=== PATIENT | male | born 1995 | race Caucasian/White ===

== ENCOUNTER 2022-02-18 12:51 | Emergency (ER) | payer BC, SELFPAY ==
[2022-02-18 12:52] VITALS: BP 140/79; PULSE 99; RESP 18; TEMP 36.8; O2SAT 96; BMI 25.9
--- NOTE | 2022-02-18 13:16 | CT_ITS ---
FINAL REPORT CLINICAL HISTORY: abd pain FINDINGS: Technique: The patient was injected with intravenous contrast. Axial images through the abdomen and pelvis were performed. This study was performed with techniques to keep radiation doses as low as reasonably achievable (ALARA). Individualized dose reduction techniques using automated exposure control or adjustment of mA and/or kV according to the patient's size were employed. Abdomen: The lung bases are clear. The liver is normal in size and attenuation. The gallbladder is present. The spleen is unremarkable. The adrenals are normal. The pancreas is unremarkable. The kidneys enhance appropriately. The aorta is normal in caliber. There is a small amount of free fluid which is likely reactive. Pelvis: The appendix is normal. There are multiple fluid filled small bowel loops with mild wall thickening which is worrisome for enteritis. The urinary bladder is unremarkable. IMPRESSION: Findings worrisome for enteritis. Small amount of free fluid which is likely reactive. Reviewed, Interpreted and Dictated by Malik Murcia III, MD Transcribed by Rachel Browne Authenticated by Malik Murcia III, MD on 02/18/2022 02:38:13 PM [facility]
[2022-02-18 13:26] LABS: Basophils # 0.1 K/mm3 (0-0.2); Basophils % 0.5 % (0.1-2.0); Eosinophils # 0.1 K/mm3 (0.0-0.4); Eosinophils % 0.7 % (0.1-12.0); Hematocrit 49.3 % (42.0-52.0); Lymphocytes # 0.7 K/mm3 (0.7-4.5); Lymphocytes % 5.7 % (10-50); Mean Corpuscular HGB Conc 34.6 g/dL (31.8-35.4); Mean Corpuscular Hemoglobin 29.8 pg (27.0-31.2); Mean Corpuscular Volume 86.2 fl (80-94); Mean Platelet Volume 8.2 fl (7.4-10.4); Monocytes # 0.5 K/mm3 (0.1-1.0); Monocytes % 4.3 % (1.7-9.3); Neutrophils % 88.7 % (37.0-80.0); Platelet Count 305 K/mm3 (142-424); Red Blood Count 5.71 M/mm3 (4.60-6.20); Red Cell Distribution Width 13.8 % (11.5-17.5); White Blood Count 12.4 K/mm3 (4.8-10.8)
[2022-02-18 13:27] LABS: MANUAL DIFFERENTIAL MANUAL DIFFERENTIAL (MANUAL DIFF)
[2022-02-18 13:29] LABS: Chloride 104 mmol/L (98-107); Potassium 4.3 mmoL/L (3.5-5.1); Sodium 139 mmol/L (136-145)
[2022-02-18 13:31] LABS: Amylase 72 U/L (30-110); Blood Urea Nitrogen 15 mg/dl (9-20); Creatinine Clearance Estimated 177 mL/min (50-200); Estimated Glomerular Filt Rate 134 ml/min (>60); GFR (African American) 162 ML/MIN (>60)
[2022-02-18 13:32] LABS: Alanine Aminotransferase 49 U/L (12-78); Albumin Level 4.5 g/dl (3.5-5.0); Albumin/Globulin Ratio 1.6 (1.1-1.8); Alkaline Phosphatase 100 U/L (38-126); Anion Gap 10.3 mEq/L (5-15); Aspartate Amino Transferase 37 U/L (17-59); Bilirubin,Total 0.7 mg/dl (0.2-1.3); Calcium 8.4 mg/dl (8.4-10.2); Carbon Dioxide 29 mmol/L (22.0-30.0); Globulin 2.8 g/dL (1.3-3.2); Glucose 100 mg/dl (74-100); Lipase 40 U/L (23-300); Total Protein,Serum 7.3 g/dl (6.3-8.2)
[2022-02-18 13:45] VITALS: BP 127/70; PULSE 70; RESP 16; O2SAT 98
--- NOTE | 2022-02-18 13:56 | PC.NURSE ---
pt in CT
--- NOTE | 2022-02-18 14:06 | HMH.EDGENADL ---
ED Disposition Clinical Impression: Enteritis Disposition: Home, Self-Care Condition on Discharge: Good Instructions: DI for Acute Abdominal Pain, DI for Enteritis Additional Instructions: You are being provided with a list of physicians available for follow-up of your condition. Please call a physician on this list to arrange a follow-up appointment as soon as possible. Bentyl as needed for abdominal cramps. Zofran as needed for nausea. Additional instructions for ABDOMINAL PAIN: See your physician as soon as possible for further evaluation. Return immediately if worsening abdominal pain, vomiting, shortness of breath, fever, bloody diarrhea, vomiting of blood or abdominal distention. Prescriptions: Dicyclomine HCl [Bentyl 10mg capsule] 10 mg PO TIDP PRN #10 cap PRN Reason: Cramping [id number] Ondansetron [Zofran 4mg ODT] 4 mg PO TIDP PRN #10 tab PRN Reason: Nausea And Vomiting Transmission Status: [id number] Referrals: Provider,Referral, [Primary Care Provider] - - Critical Care Critical Care Time: No Attestation: On 02/18/22, the high probability of a clinically significant, sudden or life threatening deterioration of the following system(s) required my full and direct attention, intervention and personal management. The time I documented below is in addition to time spent performing reported procedures but includes the following listed in this critical care notation. Medical Decision Making - Jose A Inquiry Pt receiving controlled substance: No Vital Signs: 02/18/22 12:52 02/18/22 13:45 02/18/22 14:25 Temperature 98.2 F Temperature Source Oral Pulse Rate 70 70 Pulse Rate [Right Radial] 99 H Respiratory Rate 18 16 16 Blood Pressure 127/70 132/74 Blood Pressure [Right Arm] 140/79 Blood Pressure Mean [Right Arm] 99 Blood Pressure Source Automatic Cuff Automatic Cuff Blood Pressure Position Sitting Sitting 02 Sat by Pulse Oximetry 96 98 98 Oxygen Delivery Method Room Air Room Air 02/18/22 15:29 02/18/22 16:31 Temperature 98.3 F Temperature Source Oral Pulse Rate 72 70 Pulse Rate [Right Radial] Respiratory Rate 16 16 Blood Pressure 122/70 122/70 Blood Pressure [Right Arm] Blood Pressure Mean [Right Arm] Blood Pressure Source Automatic Cuff Automatic Cuff Blood Pressure Position Sitting Sitting 02 Sat by Pulse Oximetry 100 Oxygen Delivery Method Room Air Room Air - Lab Data Lab Results 02/18/22 13:04: WBC 12.4 H, RBC 5.71, Hgb 17.0, Hct 49.3, MCV 86.2, MCH 29.8, MCHC 34.6, RDW 13.8, Plt Count 305, MPV 8.2, Neut % (Auto) 88.7 H, Lymph % (Auto) 5.7 L, Fisher % (Auto) 4.3, Eos % (Auto) 0.7, Baso % (Auto) 0.5, Neut # (Auto) 11.0 H, Lymph # (Auto) 0.7, Fisher # (Auto) 0.5, Eos # (Auto) 0.1, Baso # (Auto) 0.1, Total Counted 100, Neutrophils % (Manual) 89 H, Lymphocytes % (Manual) 8 L, Monocytes % (Manual) 2, Eosinophils % (Manual) 1, Platelet Estimate Normal, RBC Morphology Normal 02/18/22 13:04: Sodium 139, Potassium 4.3, Chloride 104, Carbon Dioxide 29, Anion Gap 10.3, BUN 15, Creatinine 0.70, Estimated Creat Clear 177, Estimated GFR 134, Est GFR ( Amer) 162, Glucose 100, Calcium 8.4, Total Bilirubin 0.7, AST 37, ALT 49, Alkaline Phosphatase 100, Total Protein 7.3, Albumin 4.5, Globulin 2.8, Albumin/Globulin Ratio 1.6, Amylase 72, Lipase 40 02/18/22 13:16: Urine Color Yellow, Urine Appearance Clear, Urine pH 7.0, Ur Specific [place] 1.010, Urine Protein Negative, Urine Glucose (UA) Negative, Urine Ketones Negative, Urine Blood Negative, Urine Nitrate Negative, Urine Bilirubin Negative, Urine Urobilinogen 0.2, Ur Leukocyte Esterase Negative, Urine RBC None, Urine WBC None, Ur Squamous Epith Cells None, Urine Bacteria None Result diagrams: 02/18/22 13:04 02/18/22 13:04 Orders (Tests/Meds): ED MEDICATIONS Discontinued Medications Generic Name Dose Route Start Last Admin Trade Name
[2022-02-18 14:21] LABS: Eosinophils % 1 % (0-3); Lymphocytes % 8 % (10-50); Monocytes % 2 % (2-9); Neutrophils % 89 % (42-76); Platelet Estimate Normal; RBC Morphology Normal; Total Cells Counted 100
[2022-02-18 14:25] VITALS: BP 132/74; PULSE 70; RESP 16; O2SAT 98
[2022-02-18 15:29] VITALS: BP 122/70; PULSE 72; RESP 16; O2SAT 100
--- NOTE | 2022-02-18 15:30 | PC.NURSE ---
Spoke with eren from [facility] she stated that CT scans had been read but weren't crossing over. She will be printing them out and bringing them to us.
--- NOTE | 2022-02-18 15:34 | PC.NURSE ---
Urine sent to lab at this time.
[2022-02-18 15:35] LABS: Microscopic, Urine URINE MICROSCOPIC (MICROSCOPIC)
[2022-02-18 16:22] LABS: Appearance,Urine CLEAR (Clear); Bilirubin,Urine Negative (Negative); Blood, Urine Negative (Negative); Color,Urine YELLOW (Yellow); Glucose,Urine (UA) Negative (Negative); Ketones,Urine Negative (Negative); Leukocyte Esterase,Urine Negative (Negative); Nitrate,Urine Negative (Negative); Protein,Urine Negative (Negative); Urobilinogen,Urine 0.2 EU/dl (0.2)
[2022-02-18 16:31] VITALS: BP 122/70; PULSE 70; RESP 16; TEMP 36.8; O2SAT 98
== END 2022-02-18 16:35 | disposition home or self-care (01) ==
PROVIDERS: Emergency Provider Emergency Medicine
DX: K52.9 Noninfective gastroenteritis and colitis, unspecified (principal); R10.13 Epigastric pain
CPT/HCPCS: 74177; 80053; 81001; 82150; 83690; 85007; 85025; 96365; 96375; 99284; Q9967

== ENCOUNTER 2024-07-26 22:07 | Emergency (ER) | payer BC, SELFPAY ==
--- NOTE | 2024-07-26 23:17 | ED_ITS ---
Discharge Plan Disposition Patient Disposition: Home, Self-Care Prescriptions Prescriptions: New ondansetron HCl 4 mg tablet 4 mg PO Q8H PRN (Reason: nausea and vomiting) 5 Days Qty: 30 0RF No Action ondansetron 4 MG tablet,disintegrating 4 mg PO TIDP PRN (Reason: Nausea And Vomiting) Qty: 10 0RF dicyclomine 10 MG capsule 10 mg PO TIDP PRN (Reason: Cramping) Qty: 10 0RF Referrals Follow up/Referrals: Provider,Referral, MD [Primary Care Provider] - See instructions Activity Restrictions/Add. Instructions Additional Instructions/Restrictions: Please take Tylenol and ibuprofen as needed for pain and fever. Please take Zofran as needed for nausea and vomiting. Please follow-up with your primary care provider. Please return to the emergency department if you develop any new or worsening symptoms or become concerned for your health. Clinical Impressions Clinical Impression: Flu-like symptoms, Body aches Stand Alone Forms Stand Alone Forms: Work/School Release Print Language Print Language: Swedish Discharge ED Provider: Evan Luu General Adult HPI General Chief complaint: Fever Stated complaint: fever,SOA,body aches Time Seen by Provider: 07/26/24 23:17 History of Present Illness HPI narrative: 29-year-old male without significant past medical history presents for flulike symptoms. He reports that for the last day or 2 he has had mild fever, body aches, occasional cough. He denies any chest pain or shortness of breath. Reports nausea but no vomiting. Denies diarrhea. Reports that other people around him have been sick recently as well Related Data Previous Rx's ?Medication ?Instructions ?Recorded dicyclomine 10 mg capsule 10 mg PO TIDP PRN Cramping #10 caps 02/18/22 ondansetron 4 mg disintegrating 4 mg PO TIDP PRN Nausea And 02/18/22 tablet Vomiting #10 tabs ondansetron HCl 4 mg tablet 4 mg PO Q8H PRN nausea and 07/26/24 vomiting 5 days #30 tabs Allergies Allergy/AdvReac Type Severity Reaction Status Date / Time No Known Allergies Allergy Verified 02/18/22 13:16 [facility] Disclaimer: The information contained in this section may have been updated after the patient was seen, as this information can be updated by other users. Social History Smoking Status: Former smoker alcohol intake: never current occupational status: employed Travel in the last 8 weeks: None ROS Obtained: Yes All systems reviewed & no additional complaints except as documented Physical Exam General General appearance: alert and in no apparent distress Head Head exam: atraumatic and normocephalic Eye Eye exam: Present normal appearance, PERRL and EOMI ENT ENT exam: Present normal oropharynx and normal external ear exam Neck Neck exam: Present normal inspection and full ROM Chest Chest inspection: Present normal inspection and symmetric chest wall rise; Absent tenderness Respiratory Respiratory exam: Present normal lung sounds bilaterally; Absent respiratory distress Cardiovascular Cardiovascular exam: Present regular rate and normal rhythm Abdominal Exam Abdominal exam: Present soft; Absent distention, tenderness or guarding Extremities Exam Extremities exam: Present normal inspection; Absent edema or joint swelling Back Exam Back exam: Present normal inspection; Absent tenderness Neurological Exam Neurological exam: Present alert and oriented X3; Absent motor sensory deficit Psychiatric Psychiatric exam: Present normal affect and normal mood Skin Skin exam: Present warm, dry and normal color Lymphatic Lymphatic Findings: no adenopathy Medical Decision Making Medical Records Medical records reviewed: Yes I reviewed the patient's medical records. Jose A Inquiry Pt receiving controlled substance: No Jose A was queried for this patient: No Vital Signs: 07/26/24 23:21 07/26/24 23:45 07/26/24 23:46 Temperature 100.3 F H 100.3 F H Temperature Source Oral Oral Oral Pulse Rate 70 Pulse Rate [Right Brachial] 90 Respiratory Rate 16 16 Blood Pressure 109/70 L Blood Pressure [Right Arm] 109/70 L Blood Pressure Mean [Right Arm] 83 Blood Pressure Source Automatic Cuff Blood Pressure Source [Right Arm] Automatic Cuff Blood Pressure Position Sitting Blood Pressure Position [Right Arm] Sitting 02 Sat by Pulse Oximetry 97 Oxygen Delivery Method Room Air Room Air Lab Data Lab results reviewed: Yes I reviewed the patient's lab results. Orders (Tests/Meds): ED MEDICATIONS Discontinued Medications Generic Name Dose Route Start Last Admin Trade Name Freq PRN Reason Stop Dose Admin Ondansetron HCl 4 mg 07/26/24 23:27 07/26/24 23:29 Ondansetron 4mg Odt SL 07/26/24 23:28 4 mg ONCE ONE Administration Medical Decision Narrative: 29-year-old male without significant past medical history presents for flulike symptoms for the last 1 to 2 days. History was obtained via interactive discussion with patient family chart review. On arrival, patient is borderline febrile to 100.3, hemodynamically stable,, moving all extremities spontaneously. Full physical exam performed and significant for clear oropharynx, clear lungs bilaterally, overall well-appearing Differential includes but is not limited to flu, COVID, URI, pneumonia, strep throat.. Patient was given Zofran for symptomatic management and correction of underlying abnormalities. I considered obtaining chest x-ray, strep swab, viral swabs, but they were deemed unnecessary given history and physical exam Given patient history, exam and workup, patient's presentation most likely represents URI. Patient was given instructions regarding symptomatic care and discharged with prescription for Zofran for nausea. Return precautions given.. Procedures Risk/Benefits of Procedure(s) Were Explained: Yes Critical Care Critical Care Time Critical Care Time: No
[2024-07-26 23:21] VITALS: BP 109/70; PULSE 90; RESP 16; TEMP 37.9; O2SAT 97; BMI 28.3
[2024-07-26] MEDS: ONDANSETRON 4MG ODT 4 MG SL (23:29)
[2024-07-26 23:45] VITALS: BP 109/70; PULSE 70; RESP 16; TEMP 37.9
== END 2024-07-26 23:40 | disposition home or self-care (01) ==
PROVIDERS: Emergency Provider Emergency Medicine
DX: R50.9 Fever, unspecified (principal); R06.02 Shortness of breath; R11.0 Nausea; R05.9 Cough, unspecified; Z87.891 Personal history of nicotine dependence
CPT/HCPCS: 99283; Q0162

== ENCOUNTER 2024-10-24 04:27 | Emergency (ER) | payer BC, SELFPAY ==
[2024-10-24 04:29] VITALS: BP 109/77; PULSE 88; RESP 18; TEMP 36.9; O2SAT 100; BMI 26.6
[2024-10-24 04:42] VITALS: PULSE 85; O2SAT 96
[2024-10-24 04:45] VITALS: PULSE 84; O2SAT 96
[2024-10-24] MEDS: ACETAMINOPHEN 500MG TAB 1000 MG PO (04:49)
[2024-10-24] MEDS: IBUPROFEN 800 MG TABLET PO (04:49)
[2024-10-24 04:50] LABS: Coronavirus 19, PCR Not Detected (NotDetected); Influenza A, PCR Not Detected (NotDetected); Influenza B, PCR Not Detected (NotDetected)
[2024-10-24 05:24] VITALS: BP 110/74; PULSE 84; RESP 16; TEMP 36.8; O2SAT 100
--- NOTE | 2024-10-24 05:27 | ED_ITS ---
Discharge Plan Disposition Patient Disposition: Home, Self-Care Condition: Good Prescriptions Prescriptions: No Action ondansetron HCl 4 mg tablet 4 mg PO Q8H PRN (Reason: nausea and vomiting) 5 Days Qty: 30 0RF ondansetron 4 MG tablet,disintegrating 4 mg PO TIDP PRN (Reason: Nausea And Vomiting) Qty: 10 0RF dicyclomine 10 MG capsule 10 mg PO TIDP PRN (Reason: Cramping) Qty: 10 0RF Referrals Follow up/Referrals: Provider,Referral, MD [Primary Care Provider] - See instructions Activity Restrictions/Add. Instructions Additional Instructions/Restrictions: You were evaluated in the ER and are appropriate for discharge at this time. Take Tylenol, ibuprofen if needed for headache, body aches, fever. Do not exceed the recommended dose on the bottle. Drink water and eat a small snack each time you take these medications to avoid side effects. Make an appointment with your primary care doctor for reevaluation in 2 to 3 days. Return to the ER with new, worsening, or otherwise concerning symptoms. Clinical Impressions Clinical Impression: Flu-like symptoms, Body aches, Headache Print Language Print Language: Kyrgyz Discharge ED Provider: Kaden Cotton Adult HPI General Chief complaint: Upper Respiratory Infection Stated complaint: pressure from neck to back, muscle aches Time Seen by Provider: 10/24/24 04:35 Mode of Arrival: Ambulatory Source of Information: Patient Limitations: No Limitations Description of Symptoms (Recalled from ER Triage Doc. by RN): Patient reports flu symptoms since wednesday. States temp has been 103-104. Currently is 98.4. Has not taken anything since he took ibuprofen at 1:30 pm. DOes have a cough and states he is having tension headaches and body aches. History of Present Illness HPI narrative: Otherwise healthy 29-year-old male presents to the ER complaining of flulike symptoms for the last 2 days. Patient states he has had temperatures as high as 103 but today his temperature was only 102 and he has not taken ibuprofen since 1:30 PM and presented afebrile. Patient reports cough, mild congestion, he is also having headaches that he describes as tension headaches and bodyaches, muscle aches. He denies any nausea, vomiting, diarrhea, no chest pain or difficulty breathing, no numbness, tingling, or weakness. No other associated symptoms. Related Data Previous Rx's ?Medication ?Instructions ?Recorded dicyclomine 10 mg capsule 10 mg PO TIDP PRN Cramping #10 caps 02/18/22 ondansetron 4 mg disintegrating 4 mg PO TIDP PRN Nausea And 02/18/22 tablet Vomiting #10 tabs ondansetron HCl 4 mg tablet 4 mg PO Q8H PRN nausea and 07/26/24 vomiting 5 days #30 tabs Allergies Allergy/AdvReac Type Severity Reaction Status Date / Time No Known Allergies Allergy Verified 02/18/22 13:16 [facility] Disclaimer: The information contained in this section may have been updated after the patient was seen, as this information can be updated by other users. Social History (Updated 07/27/24 @ 00:49 by Evan Luu MD) Smoking Status: Current every day smoker alcohol intake: never current occupational status: employed Travel in the last 8 weeks: None Other Medical History Have you received the Flu Vaccine for this season: No Have you received the Pneumonia Vaccine: No ROS Obtained: Yes Systems reviewed as appropriate & no additional complaints except as documented ROS per HPI Physical Exam General General appearance: alert and in no apparent distress Head Head exam: atraumatic and normocephalic Eye Eye exam: Present PERRL and EOMI; Absent conjunctival redness ENT ENT exam: Present mucous membranes moist Expanded ENT Exam Throat exam: Present tonsillar erythema; Absent tonsillomegaly or tonsillar exudate Neck Neck exam: Present normal inspection and full ROM Chest Chest inspection: Present symmetric chest wall rise Respiratory Respiratory exam: Present normal lung sounds bilaterally; Absent respiratory distress, wheezes or stridor Cardiovascular Cardiovascular exam: Present regular rate and normal rhythm Abdominal Exam Abdominal exam: Present soft; Absent distention or tenderness Extremities Exam Extremities exam: Present full ROM; Absent edema Neurological Exam Neurological exam: Present alert, oriented X3, CN II-XII intact and normal gait; Absent motor sensory deficit Psychiatric Psychiatric exam: Present normal affect and normal mood Skin Skin exam: Present warm and dry Medical Decision Making Medical Records Screening: Per USPSTF and CDC recommendations, given the prevalence of disease in our region, it is our hospital?s policy to screen for HIV and viral Hepatitis for all patients aged 18 and over and those with ongoing risk factors. Jose A Inquiry Pt receiving controlled substance: No Vital Signs: 10/24/24 04:29 10/24/24 04:42 10/24/24 04:45 Temperature 98.4 F Temperature Source Oral Pulse Rate 85 84 Pulse Rate [Right Radial] 88 Respiratory Rate 18 Blood Pressure Blood Pressure [Right Arm] 109/77 L Blood Pressure Mean [Right Arm] 87 Blood Pressure Source Blood Pressure Source [Right Arm] Automatic Cuff Blood Pressure Position Blood Pressure Position [Right Arm] Supine 02 Sat by Pulse Oximetry 100 96 96 Oxygen Delivery Method Room Air 10/24/24 05:24 Temperature 98.2 F Temperature Source Oral Pulse Rate 84 Pulse Rate [Right Radial] Respiratory Rate 16 Blood Pressure 110/74 Blood Pressure [Right Arm] Blood Pressure Mean [Right Arm] Blood Pressure Source Automatic Cuff Blood Pressure Source [Right Arm] Blood Pressure Position Supine Blood Pressure Position [Right Arm] 02 Sat by Pulse Oximetry Oxygen Delivery Method Room Air Lab Data Lab Results 10/24/24 04:41: SARS-CoV-2 (PCR) Not detected, Influenza A Untype (PCR) Not detected, Influenza Type B (PCR) Not detected Orders (Tests/Meds): ED MEDICATIONS Discontinued Medications Generic Name Dose Route Start Last Admin Trade Name Freq PRN Reason Stop Dose Admin Acetaminophen 1,000 mg 10/24/24 04:46 10/24/24 04:49 Acetaminophen 500mg Tab PO 10/24/24 04:47 1,000 mg ONCE ONE Administration Ibuprofen 800 mg 10/24/24 04:46 10/24/24 04:49 Ibuprofen 800 Mg Tablet PO 10/24/24 04:47 800 mg ONCE ONE Administration ORDERS Category Date Time Status Rapid PCR Covid and Flu A/B Stat Lab 10/24/24 04:41 Completed Medical Decision Narrative: In summary, this 29-year-old male presents to the emergency department today with cough, headache, body aches, recent fever. On initial evaluation patient is hemodynamically stable, afebrile, GCS 15, no neurologic deficits, cardiopulmonary exam benign, posterior oropharynx is erythematous without tonsillomegaly or exudates, no lymphadenopathy, remainder of exam benign. Differential diagnosis includes but is not limited to viral syndrome including COVID, influenza, other virus, I considered the possibility of tension headache, migraine, I also considered the possibility of more dangerous cause of the headache however patient has been symptomatic for multiple days, is afebrile with no meningismus, no neurologic deficits, no photophobia, he also did not have any red flag symptoms for the headache such as thunderclap, maximum intensity at onset, and has no neurologic deficits. Based on these concerns, I ordered viral swab. I consider chest x-ray to evaluate for pneumonia however patient's cardiopulmonary exam is benign he is afebrile, I have very low pretest probability and chest x-ray will not be performed at this time. Patient received Tylenol, ibuprofen in the ER. He was also tolerating oral intake. Labs reviewed demonstrate negative COVID, flu. On reevaluation patient continues to be stable and is appropriate for discharge. Patient was given instructions on symptomatic management, follow up instructions, and return precautions for the emergency department. Patient indicated understanding and was discharged in stable condition. Critical Care Critical Care Time Critical Care Time: No
== END 2024-10-24 05:29 | disposition home or self-care (01) ==
PROVIDERS: Emergency Provider Emergency Medicine
DX: J11.1 Influenza due to unidentified influenza virus with other respiratory manifestations (principal); R51.9 Headache, unspecified; R50.9 Fever, unspecified; R05.9 Cough, unspecified; M79.10 Myalgia, unspecified site; R09.81 Nasal congestion
CPT/HCPCS: 87636; 99283

== ENCOUNTER 2025-02-28 11:19 | Emergency (ER) | payer SELFPAY ==
[2025-02-28 11:42] VITALS: BP 135/87; PULSE 93; RESP 19; TEMP 36.8; O2SAT 98; BMI 29.0
[2025-02-28 11:44] LABS: Microscopic, Urine URINE MICROSCOPIC (MICROSCOPIC)
[2025-02-28 11:46] LABS: Basophils # 0.1 K/mm3 (0-0.2); Basophils % 0.4 % (0.1-2.0); Eosinophils # 0.1 K/mm3 (0.0-0.4); Eosinophils % 0.6 % (0.1-12.0); Hematocrit 47.6 % (42.0-52.0); Lymphocytes # 0.5 K/mm3 (0.7-4.5); Lymphocytes % 3.8 % (10-50); Mean Corpuscular HGB Conc 35.7 g/dL (31.8-35.4); Mean Corpuscular Hemoglobin 29.6 pg (27.0-31.2); Mean Corpuscular Volume 82.8 fl (80-94); Mean Platelet Volume 9.3 fl (7.4-10.4); Monocytes # 0.8 K/mm3 (0.1-1.0); Monocytes % 5.8 % (1.7-9.3); Neutrophils # 12.5 K/mm3 (1.8-7.8); Platelet Count 256 K/mm3 (142-424); Red Blood Count 5.75 M/mm3 (4.60-6.20); Red Cell Distribution Width 12.3 % (11.5-17.5); White Blood Count 14.1 K/mm3 (4.8-10.8)
[2025-02-28 11:52] LABS: Appearance,Urine CLEAR (Clear); Bilirubin,Urine Negative (Negative); Blood, Urine Negative (Negative); Color,Urine YELLOW (Yellow); Glucose,Urine (UA) Negative (Negative); Ketones,Urine TRACE (Negative); Leukocyte Esterase,Urine Negative (Negative); Nitrate,Urine Negative (Negative); Protein,Urine Negative (Negative); Urobilinogen,Urine 0.2 EU/dl (0.2)
[2025-02-28 11:58] LABS: Specific Gravity, Urine >= 1.030 (1.005-1.030)
[2025-02-28 12:03] LABS: Bacteria,Urine Trace /lpf; Squamous Epithelial Cell,Urine Occasional #/hpf (0-5)
--- NOTE | 2025-02-28 12:04 | ED_ITS ---
<Statement entered by Janice Schaffer DO - 02/28/25 15:25> I was consulted by the KAVITHA, and we discussed the complexity of the problems being addressed. I approved the treatment and management plan for this patient's care in the emergency department, thus performing a substantive portion of the medical decision making. I independently interpreted CT prior to radiology read and noted fluid-filled loops of bowel consistent with enteritis. Labs demonstrated mild leukocytosis, likely leukemoid reaction in the setting of vomiting and diarrhea. Janice Schaffer DO Discharge Plan Disposition Patient Disposition: Home, Self-Care Condition: Good Prescriptions Prescriptions: New ondansetron 4 mg tablet,disintegrating 4 mg PO Q8H PRN (Reason: nausea and vomiting) Qty: 10 0RF Referrals Follow up/Referrals: Provider,Referral, MD [Primary Care Provider] - See instructions Activity Restrictions/Add. Instructions Additional Instructions/Restrictions: Monitor temperature. Seek treatment if fever develops. Follow-up immediately if new or worse symptoms worsen or no noticeable improvement over 48 hours. Increase fluids such as water, Gatorade, Powerade, juice or Pedialyte with limited formula/dietary in children No food is okay as long as you are drinking. Once ready to eat start bland such as bananas, rice, applesauce, toast. Contagious until no diarrhea, vomiting, fever times 48 hours without medication Avoid antidiarrheals unless told otherwise. Best to let the virus run its course. Follow-up immediately for new or worsening symptoms or no noticeable improvement over the next 48 hours. Clinical Impressions Clinical Impression: Enterocolitis Instructions Patient Instructions: DI for Nausea -- Adult, Nausea and Vomiting-Adult Print Language Print Language: Congolese Discharge ED Provider: Janice Schaffer General Adult HPI General Chief complaint: Nausea/Vomiting/Diarrhea Stated complaint: radiating Abd pain diarrhea nausea Time Seen by Provider: 02/28/25 12:00 Mode of Arrival: Ambulatory Source of Information: Patient Limitations: No Limitations History of Present Illness HPI narrative: 30-year-old male presents for abdominal pain, fever, nausea and vomiting since 5 AM this morning. Related Data Previous Rx's ?Medication ?Instructions ?Recorded ondansetron 4 mg disintegrating 4 mg PO Q8H PRN nausea and 02/28/25 tablet vomiting #10 tabs Allergies Allergy/AdvReac Type Severity Reaction Status Date / Time No Known Allergies Allergy Verified 02/18/22 13:16 [facility] Disclaimer: The information contained in this section may have been updated after the patient was seen, as this information can be updated by other users. Medical History (Updated 02/28/25 @ 13:59 by Amanda Pickering ([facility]), INSURANCE ACCOUNT SPECIALIST) Hx of pneumothorax Surgical History (Updated 02/28/25 @ 12:22 by Angeline Cortes RN) History of tonsillectomy Social History (Updated 02/28/25 @ 12:22 by Angeline Cortes RN) Smoking Status: Current every day smoker tobacco type: e-cigarettes alcohol intake: never current occupational status: employed Travel in the last 8 weeks: None Have you lived/traveled outside [place] in past 30 days?: No Contact w/someone who lives/traveled outside [place] past 30 days?: No Exposure to someone with infectious disease in past 14 days?: No Do you have a fever (greater than 100.4 F or 38 C)?: No Have you tested positive for COVID-19: No Exposed to someone with COVID-19 in past 14 days?: No Do you have a sore throat?: No Do you have a cough?: No Do you have any weakness?: No Do you have any diarrhea?: No Are you experiencing any unusual bleeding?: No Do you have any muscle aches/pain?: No Do you have any abdominal pain?: No Are you experiencing loss of taste or smell?: No Other Medical History Have you received the Flu Vaccine for this season: No Have you received the Pneumonia Vaccine: No ROS Obtained: Yes Systems reviewed as appropriate & no additional complaints except as documented Constitutional Constitutional: Reports system reviewed and no additional complaints, except as documented and Reports as per HPI Gastrointestinal Gastrointestingal: Reports system reviewed and no additional complaints, except as documented, as per HPI, abdominal pain, diarrhea and vomiting Physical Exam General General appearance: alert and in no apparent distress Head Head exam: atraumatic Eye Eye exam: Present normal appearance and PERRL ENT ENT exam: Present normal exam Respiratory Respiratory exam: Present normal lung sounds bilaterally Cardiovascular Cardiovascular exam: Present regular rate and normal rhythm Abdominal Exam Abdominal exam: Present soft, tenderness and normal bowel sounds Abdominal tenderness: Present RLQ, LLQ, suprapubic and moderate Neurological Exam Neurological exam: Present alert and oriented X3 Skin Skin exam: Present warm and intact Medical Decision Making Medical Records Medical records reviewed: Yes I reviewed the patient's medical records. Screening: Per USPSTF and CDC recommendations, given the prevalence of disease in our region, it is our hospital?s policy to screen for HIV and viral Hepatitis for all patients aged 18 and over and those with ongoing risk factors. Jose A Inquiry Pt receiving controlled substance: No Jose A was queried for this patient: No Vital Signs: 02/28/25 11:42 02/28/25 12:15 02/28/25 13:15 Temperature 98.2 F Temperature Source Oral Pulse Rate 89 77 Pulse Rate [Right] 93 H Respiratory Rate 19 9 L 17 Blood Pressure 124/70 124/70 Blood Pressure [Right Arm] 135/87 Blood Pressure Mean [Right Arm] 103 02 Sat by Pulse Oximetry 98 97 95 Oxygen Delivery Method Room Air Lab Data Lab results reviewed: Yes I reviewed the patient's lab results. Lab Results 02/28/25 11:24: Urine Color Yellow, Urine Appearance Clear, Urine pH 6.0, Ur Specific Delta >= 1.030, Urine Protein Negative, Urine Glucose (UA) Negative, Urine Ketones Trace, Urine Blood Negative, Urine Nitrate Negative, Urine Bilirubin Negative, Urine Urobilinogen 0.2, Ur Leukocyte Esterase Negative, Urine RBC None, Urine WBC None, Ur Squamous Epith Cells Occasional, Urine Bacteria Trace 02/28/25 11:35: WBC 14.1 H, RBC 5.75, Hgb 17.0, Hct 47.6, MCV 82.8, MCH 29.6, M CHC 35.7 H, RDW 12.3, Plt Count 256, MPV 9.3, Neut % (Auto) 89.0 H, Lymph % (Auto) 3.8 L, Mellette % (Auto) 5.8, Eos % (Auto) 0.6, Baso % (Auto) 0.4, Neut # (Auto) 12.5 H, Lymph # (Auto) 0.5 L, Mellette # (Auto) 0.8, Eos # (Auto) 0.1, Baso # (Auto) 0.1, Sodium 141, Potassium 4.2, Chloride 104, Carbon Dioxide 24, Anion Gap 17.2 H, BUN 17, Creatinine 0.80, Estimated Creat Clear 157, Estimated GFR 112, Est GFR ( Amer) 136, Glucose 123 H, Lactate 1.3, Calcium 9.3, Total Bilirubin 1.4 H, AST 51, ALT 70, Alkaline Phosphatase 95, Total Protein 8.3 H, Albumin 4.9, Globulin 3.4 H, Albumin/Globulin Ratio 1.4, Lipase 38, HCV Ab NICOLE w/Rflx PCR Qn Negative, HIV Ag/Ab Combo Qual Negative 02/28/25 11:35 02/28/25 11:35 Orders (Tests/Meds): ED MEDICATIONS Generic Name Dose Route Start Last Admin Trade Name Freq PRN Reason Stop Dose Admin Sodium Chloride 10 ml 02/28/25 12:39 02/28/25 12:40 Sodium Chloride 0.9% 10ml Syr (Rad Only) IV 03/30/25 12:38 10 ml NEEDED PRN Administration Maintain IV Site Discontinued Medications Generic Name Dose Route Start Last Admin Trade Name Freq PRN Reason Stop Dose Admin Iopamidol 75 ml 02/28/25 12:39 02/28/25 12:40 Iopamidol-370 (76%);100ml Bottle IV 02/28/25 12:40 75 ml ONCE ONE Administration ORDERS Category Date Time Status CT abdomen pelvis w con Stat Cat Scan 02/28/25 12:05 Completed Complete Blood Count Auto Diff Stat Lab 02/28/25 11:35 Completed Comprehensive Metabolic Panel Stat Lab 02/28/25 11:35 Completed Diarrhea 23 Panel, PCR Stat Lab 02/28/25 11:41 Ordered HIV Combo Stat Lab 02/28/25 11:35 Completed Hepatitis C Ab Qual. W/ RFX Stat Lab 02/28/25 11:35 Completed Lactic Acid Stat Lab 02/28/25 11:35 Completed Lipase Stat Lab 02/28/25 11:35 Completed Urinalysis and Microscopic Stat Lab 02/28/25 11:24 Completed Medical Decision Narrative: In summary patient is a 30-year-old male who presents to the emergency department for evaluation of abdominal pain, fever, vomiting and diarrhea since 5 AM. Patient is hemodynamically stable upon arrival, afebrile. Tenderness to lower abdomen. Differential diagnosis includes appendicitis, gastritis. Initial workup will be conducted with labs, CT abdomen. Initial inventions include a p.o. tablet p.o. challenge. Initial workup reviewed by az CT abdomen pelvis - enterocolitis.. Upon repeat evaluation patient was able to tolerate p.o. fluids and did not need pain medication. Given this patient appropriate for discharge at this time discharge home with Tanenr for nausea follow-up with and follow-up with primary care as needed Critical Care Critical Care Time Critical Care Time: No
--- NOTE | 2025-02-28 12:05 | CT_ITS ---
FINAL REPORT TECHNIQUE: IV contrast enhanced exam This study was performed with techniques to keep radiation doses as low as reasonably achievable, (ALARA). Individualized dose reduction techniques using automated exposure control or adjustment of mA and/or kV according to the patient''s size were employed. CLINICAL HISTORY: abd pain FINDINGS: Abdomen: No acute density is seen within the lung bases. The gallbladder is unremarkable. Solid abdominal organs are unremarkable. There is fluid-filled small bowel and colon which may be seen with enterocolitis. No fluid collection is seen. There is no adenopathy. Pelvis: There is no evidence of appendicitis. There are fluid-filled bowel loops. The bladder is unremarkable. There is no free fluid. No pelvic mass is seen. IMPRESSION: Findings suggestive of enterocolitis without obstruction or free air. Reviewed, Interpreted and Dictated by Angie Gunn MD Transcribed by Petra Gonzales Authenticated and [facility]
[2025-02-28 12:15] VITALS: BP 124/70; PULSE 89; RESP 9; O2SAT 97
[2025-02-28 12:18] LABS: Lactic Acid 1.3 mmol/L (0.7-2.1)
[2025-02-28 12:19] LABS: Alanine Aminotransferase 70 U/L (12-78); Albumin Level 4.9 g/dl (3.5-5.0); Albumin/Globulin Ratio 1.4 (1.1-1.8); Alkaline Phosphatase 95 U/L (38-126); Anion Gap 17.2 mEq/L (5-15); Aspartate Amino Transferase 51 U/L (17-59); Bilirubin,Total 1.4 mg/dl (0.2-1.3); Blood Urea Nitrogen 17 mg/dl (9-20); Calcium 9.3 mg/dl (8.4-10.2); Carbon Dioxide 24 mmol/L (22.0-30.0); Chloride 104 mmol/L (98-107); Creatinine Clearance Estimated 157 mL/min (50-200); Estimated Glomerular Filt Rate 112 ml/min (>60); GFR (African American) 136 ML/MIN (>60); Globulin 3.4 g/dL (1.3-3.2); Glucose 123 mg/dl (74-100); Lipase 38 U/L (23-300); Potassium 4.2 mmoL/L (3.5-5.1); Sodium 141 mmol/L (136-145); Total Protein,Serum 8.3 g/dl (6.3-8.2)
[2025-02-28] MEDS: SODIUM CHLORIDE 0.9% 10ML SYR (RAD ONLY) 10 ML IV (12:40)
[2025-02-28] MEDS: IOPAMIDOL-370 (76%);100ML BOTTLE 75 ML IV (12:40)
[2025-02-28 13:15] VITALS: BP 124/70; PULSE 77; RESP 17; O2SAT 95
[2025-02-28 13:20] LABS: HIV Combo NEGATIVE (Negative)
[2025-02-28 13:27] LABS: Hepatitis C Ab Qual. W/ RFX NEGATIVE (Negative)
[2025-02-28 14:07] VITALS: BP 124/70; PULSE 77; RESP 17; TEMP 36.8; O2SAT 95
== END 2025-02-28 14:08 | disposition home or self-care (01) ==
PROVIDERS: Nurse Practitioner Family; Emergency Provider Emergency Medicine
DX: R10.84 Generalized abdominal pain (principal); K52.9 Noninfective gastroenteritis and colitis, unspecified; R50.9 Fever, unspecified; R11.2 Nausea with vomiting, unspecified; Z11.59 Encounter for screening for other viral diseases; Z11.4 Encounter for screening for human immunodeficiency virus [HIV]
CPT/HCPCS: 99284; 74177; 80053; 81001; 83605; 83690; 85025; 86803; 87389; Q9967